=== PATIENT | female | born 1955 | race Caucasian/White ===

== ENCOUNTER 2017-07-09 13:21 | Emergency (ER) | payer OTHER ==
[~2017-07-09] VITALS: Ht 157.5 cm; Wt 75.0 kg
[2017-07-09 13:28] VITALS: BP 122/62; PULSE 91; RESP 16; TEMP 98.8; O2SAT 96
[2017-07-09] MEDS ORDERED: NAPR500T2 PO (13:34)
[2017-07-09] MEDS ORDERED: PHEN-556 PO (13:34)
[2017-07-09] MEDS ORDERED: ZITHTAB PO (13:38)
--- NOTE | 2017-07-09 13:41 | PD ---
HPI . Sore throat Chief Complaint: ENT Complaint Time Seen by Provider: 13:35 Travel History International Travel<30 days: No Contact w/Intl Traveler<30days: No Traveled to known affect area: No History of Present Illness HPI Patient presents with a chief complaint of a sore throat. Onset was last night. It is associated with subjective fevers and chills. The pain is mild and is rated 2/10. PFSH Past Medical History Medical History: Denies Significant Hx Influenza Vaccination: No ?: Not Social History Alcohol Use: Yes (RARELY) Tobacco Use: No Substance Use: No Allergies-Medications (Allergen,Severity, Reaction): Coded Allergies: Penicillins (Verified Allergy, Unknown, SWELLING, 07/09/17) Reported Meds & Prescriptions Reported Meds & Active Scripts Active Zithromax Z-Geovani (Azithromycin) 250 Mg Dspk 250 Mg PO DIRECTED 500 MG (2 tabs) day 1, then 1 tab days 2-5. Reported Naproxen 500 Mg Tab 500 Mg PO BID Lomaira (Phentermine HCl) 8 Mg Tab 8 Mg PO TID Review of Systems Except as stated in HPI: all other systems reviewed are Neg General / Constitutional: Positive: Fever, Chills HENT: Positive: Sore Throat Physical Exam Narrative GENERAL: Awake and alert and in no acute distress. SKIN: Warm and dry. Normal color and turgor. HEAD: Normocephalic/atraumatic. EYES: Pupils are equal. Extraocular movements are intact. ENT: Oropharynx is bright red. No significant edema. No tonsillar enlargement or exudate. NECK: Normal range of motion. Supple. No cervical lymphadenopathy. CARDIOVASCULAR: Regular rate and rhythm. RESPIRATORY: Nonlabored respirations. MUSCULOSKELETAL: Atraumatic. NEUROLOGICAL: Nonfocal. PSYCHIATRIC: Appropriate mood and affect. Data Data Last Documented VS Vital Signs Date Time Temp Pulse Resp B/P (MAP) Pulse Ox O2 Delivery O2 Flow Rate FiO2 07/09/17 13:28 98.8 91 16 122/62 (82) 96 MDM Medical Decision Making Medical Screen Exam Complete: Yes Emergency Medical Condition: Yes Differential Diagnosis Differential diagnosis of sore throat includes but is not limited to viral illness, strep throat, mononucleosis, retropharyngeal abscess, peritonsillar abscess Narrative Course This patient presents with an acute sore throat which started last night. Her oropharynx is bright red. She is penicillin allergic. She'll be treated with Zithromax. Diagnosis Primary Impression: Pharyngitis Qualified Codes: J02.9 - Acute pharyngitis, unspecified Patient Instructions: General Instructions, Pharyngitis (ED) Departure Forms: Tests/Procedures Scripts Azithromycin (Zithromax Z-Geovani) 250 Mg Dspk 250 MG PO DIRECTED for Infection, #1 DSPK 0 Refills 500 MG (2 tabs) day 1, then 1 tab days 2-5. Prov: Joy Jaimes MD 07/09/17 Disposition: 01 DISCHARGE HOME Condition: Stable Joy Jaimes MD Jul 09, 2017 13:41
== END 2017-07-09 14:21 | disposition home or self-care (01) ==
LOC: PHEFT 13:21
DX: J02.9 Acute pharyngitis, unspecified (principal)
CPT/HCPCS: 99283